=== PATIENT | male | born 1990 | race American Indian/Alaskan Native ===

== ENCOUNTER 2021-07-04 06:40 | Emergency (ER) | payer SELFPAY ==
[2021-07-04 06:58] VITALS: BP 134/78
[2021-07-04] MEDS ORDERED: SODIUM CHLORIDE 0.9% IRR 500 ML BOTTLE IR ONE (08:28)
[2021-07-04] MEDS ORDERED: LIDOCAINE-MPF (1%) 10 MG/1 ML VIAL 5 ML INFILTRATI ONE (08:28)
[2021-07-04] MEDS ORDERED: TETANUS,DIPH,PERTUSS(ACELL) VACCINE 0.5 ML SYRINGE IM ONE (08:40)
--- NOTE | 2021-07-04 09:07 | Emergency Department Report ---
ED Laceration HPI - HPI Chief Complaint: Laceration/Recheck/Suture Stated Complaint: LAC TO RIGHT HAND Occurred When: Today Location: Upper Extremity (right thumb) Tetanus Status: Not up to Date Laceration Symptoms: No Foreign Body Sensation, No Numbness, No Weakness, No Pain ED Review of Systems ROS: Stated complaint: LAC TO RIGHT HAND Other details as noted in HPI Comment: All other systems reviewed and negative Skin: denies: change in color Laceration Physical Exam - Exam General: Vital signs noted. No distress. Alert and acting appropriately. Laceration Location: Upper Extremity Laceration Exam: Yes Normal Distal CMS, No Foreign Body, No Exposed Tendon, Vessel, or Nerve, No Tendon Injury ED Course Vital Signs 07/04/21 06:57 Temperature 97.8 F Pulse Rate 93 H Respiratory 18 Rate Blood Pressure 134/78 [Left] O2 Sat by Pulse 98 Oximetry - Procedure Description Procedures done: laceration repair - Laceration /Wound Repair Right Finger Wound Location: upper extremity Wound Length (cm): 3 Wound's Depth, Shape: superficial, linear Wound Explored: clean Irrigated w/ Saline (ccs): 250 Betadine Prep?: Yes Anesthesia: 1% Lidocaine Volume Anesthetic (ccs): 3 Wound Repaired With: sutures Suture Size/Type: 5:0, nylon Number of Sutures: 6 Layer Closure?: No Sterile Dressing Applied?: Yes Progress: Patient tolerated well. Critical care attestation.: If time is entered above; I have spent that time in minutes in the direct care of this critically ill patient, excluding procedure time. ED Disposition Clinical Impression: Finger laceration Disposition: HOME / SELF CARE / HOMELESS Is pt being admited?: No Does the pt Need Aspirin: No Additional Instructions: -Return to Ed in days for suture removal. Return for recheck if you noticed swelling, redness, increased pain or you develop a fever. Forms: Work/School Release Form(ED) Time of Disposition: 09:16
== END 2021-07-04 10:35 | disposition home or self-care (01) ==
LOC: ED 06:40
DX: S61.011A Laceration without foreign body of right thumb without damage to nail, initial encounter (principal); W26.8XXA Contact with other sharp object(s), not elsewhere classified, initial encounter; Y93.89 Activity, other specified; Y92.89 Other specified places as the place of occurrence of the external cause; Y99.8 Other external cause status
CPT/HCPCS: 12002; 99283; J3490